=== PATIENT | female | born 1975 | race Caucasian/White ===

== ENCOUNTER 2016-07-04 10:02 | Inpatient (IN) | payer MEDICAID ==
[~2016-07-04] VITALS: Ht 157.5 cm; Wt 63.5 kg
[2016-07-04] VITALS (13 sets, daily range): BP systolic 82–145; BP diastolic 41–87; PULSE 69–179; RESP 14–35; TEMP 97.8–98.2; O2SAT 97–100
[~2016-07-04 10:02] MED LIST: CEPH-568 PO
[2016-07-04] MEDS ORDERED: ADENOSINE 6MG/2ML VIAL ONE ×2 (10:20→10:25)
[2016-07-04] MEDS ORDERED: MIDAZOLAM HCL 5 MG/5 ML VIAL ONE (10:29)
[2016-07-04] MEDS ORDERED: fentaNYL CITRATE/PF 100 MCG/2 ML AMP ONE (10:30)
[2016-07-04] MEDS ORDERED: METOPROLOL TARTRATE 5 MG/5 ML VIAL ONE ×2 (10:42→10:47)
[2016-07-04 10:56] LABS: BASOPHILS % (AUTO) 0.4 % (0.0-2.0); EOSINOPHILS # (AUTO) 0.1 K/uL (0.0-0.4); EOSINOPHILS % (AUTO) 1.4 % (0.0-4.0); HEMATOCRIT 47.3 % (36-48); HEMOGLOBIN 15.5 g/dL (12.0-16.0); LYMPHOCYTES # (AUTO) 2.5 K/uL (1.0-5.5); LYMPHOCYTES % (AUTO) 25.8 % (20.5-51.5); MEAN CORPUSCULAR HEMOGLOBIN 29 pg (27-31); MEAN CORPUSCULAR HGB CONC 33 % (32-36); MEAN CORPUSCULAR VOLUME 88 fL (79.0-98.0); MONOCYTES # (AUTO) 0.9 K/uL (0.0-1.0); NEUTROPHILS # (AUTO) 6.4 K/uL (1.8-7.7); NEUTROPHILS % (AUTO) 63.4 % (40.0-70.0); PLATELET COUNT (AUTO) 285 K/uL (130-430); RED CELL DISTRIBUTION WIDTH 12.3 % (9.0-15.0); WHITE BLOOD COUNT (AUTO) 9.9 K/uL (4.8-10.8)
[2016-07-04] MEDS ORDERED: MIDAZOLAM HCL 5 MG/5 ML VIAL IVP ONE (11:00)
[2016-07-04] MEDS ORDERED: ADENOSINE 6MG/2ML VIAL IVP ONE ×3 (11:00)
[2016-07-04] MEDS ORDERED: METOPROLOL TARTRATE 5 MG/5 ML VIAL IVP ONE ×3 (11:00)
[2016-07-04] MEDS ORDERED: fentaNYL CITRATE/PF 100 MCG/2 ML AMP IVP ONE (11:00)
[2016-07-04] MEDS ORDERED: NACL 0.9% 1,000 ML IV ONE ×4 (11:00→13:00)
[2016-07-04] MEDS ORDERED: METOPROLOL TARTRATE 25 MG TABLET PO ONE (11:00)
[2016-07-04 11:07] LABS: INR 1.1 (0.8-1.2); PROTHROMBIN TIME 11.8 SECS (9.5-12.5)
[2016-07-04 11:32] LABS: CREATININE 0.61 mg/dL (0.55-1.30); POTASSIUM 4.1 mmol/L (3.5-5.1)
[2016-07-04 11:46] LABS: ALBUMIN 3.8 g/dL (3.4-4.8); TOTAL BILIRUBIN 0.5 mg/dL (0.0-1.0); TOTAL PROTEIN, SERUM 7.4 g/dL (6.4-8.3)
[2016-07-04 11:47] LABS: THYROID STIMULATING HORMONE 5.32 uIu/mL (0.34-4.82)
[2016-07-04] MEDS ORDERED: COMMUNICATION ORDER XX ONE (13:00)
[2016-07-04] MEDS ORDERED: DILTIAZEM HCL 25 MG/5 ML VIAL IVP ONE (13:00)
[2016-07-04] MEDS ORDERED: ONDANSETRON HCL 4 MG/2 ML VIAL IVP ONE (13:00)
[2016-07-04] MEDS ORDERED: ONDANSETRON HCL 4 MG/2 ML VIAL ONE (13:08)
[2016-07-04] MEDS ORDERED: PHENYLEPHRINE HCL 10 MG/ML VIAL (NEOSYNEPHRINE) IV ONE (13:15)
[2016-07-04] MEDS ORDERED: METOPROLOL SUCCINATE 25 MG TAB.SR.24H (TOPROL XL) PO ONE (16:00)
[2016-07-04] MEDS ORDERED: FLECAINIDE ACETATE 50 MG TABLET (TAMBOCOR) ONE (17:48)
[2016-07-04] MEDS ORDERED: FLECAINIDE ACETATE 50 MG TABLET (TAMBOCOR) PO ONE (18:00)
[2016-07-04 19:45] LABS: BILIRUBIN,URINE NEGATIVE (NEGATIVE); BLOOD, URINE NEGATIVE (NEGATIVE); CLARITY/URINE CLEAR (CLEAR); COLOR,URINE YELLOW (YELLOW); GLUCOSE,URINE NEGATIVE (NEGATIVE); KETONES,URINE 1+ (NEGATIVE); NITRITE, URINE NEGATIVE (NEGATIVE); PH,URINE 7.5 (5.0-8.0); PROTEIN URINE NEGATIVE (NEGATIVE); UROBILINOGEN,URINE 0.2 (0.2-1.0)
[2016-07-04 19:53] LABS: LEUKOCYTE ESTERASE ,URINE TRACE (NEGATIVE)
[2016-07-04 19:54] LABS: BACTERIA,URINE FEW /HPF (None Seen); MUCUS,URINE None Seen /LPF (None Seen); RBC,URINE NONE SEEN /HPF (0-3)
[2016-07-04] MEDS: FLECAINIDE ACETATE 50 MG TABLET (TAMBOCOR) PO SCH (20:46)
[2016-07-05] VITALS (20 sets, daily range): BP systolic 73–121; BP diastolic 37–71; PULSE 57–102; RESP 14–28; TEMP 97.2–98.8; O2SAT 97–100
[2016-07-05] MEDS ORDERED: LEVOTHYROXINE SODIUM 0.05 MG TABLET PO SCH (07:00)
[2016-07-05] MEDS: FLECAINIDE ACETATE 50 MG TABLET (TAMBOCOR) PO SCH (08:28)
[2016-07-05] MEDS ORDERED: METOPROLOL SUCCINATE 25 MG TAB.SR.24H (TOPROL XL) PO SCH (09:00)
[2016-07-05] MEDS ORDERED: ACETAMINOPHEN 500 MG TABLET PO PRN (12:30)
[2016-07-05] MEDS ORDERED: KETOROLAC TROMETHAMINE 15 MG VIAL IVP ONE (14:30)
[2016-07-05] MEDS ORDERED: FLEC50TA2 PO (17:06)
[2016-07-05] MEDS ORDERED: METO25TA6 PO (17:07)
[2016-07-05] MEDS ORDERED: LEVO50TA77 PO (17:08)
== END 2016-07-05 18:10 | disposition home or self-care (01) | DRG 201 ==
LOC: SED 10:02 → SIC 12:48
PROVIDERS: ADMIT Family Medicine; ATTEND Family Medicine
DX: I47.1 Supraventricular tachycardia (principal); R55 Syncope and collapse; E03.9 Hypothyroidism, unspecified; E78.5 Hyperlipidemia, unspecified; Z79.899 Other long term (current) drug therapy
CPT/HCPCS: 36415; 71010; 80053; 80061; 81000-TC; 82550-TC; 84443-TC; 84484; 84703; 85025; 85610-TC; 85730-TC; 87081; 93005; 93306; 96374; 96375; 99291; J0153; J1885; J2250; J2370; J2405; J3010; J3490; J7030

== ENCOUNTER 2019-01-12 11:36 | Emergency (ER) | payer MEDICAID, OTHER ==
[~2019-01-12] VITALS: Ht 160 cm; Wt 70.3 kg
[2019-01-12 11:36] VITALS: BP_SYST 113
[~2019-01-12 11:36] MED LIST changes: -CEPH-568 PO; +FLEC50TA2 PO; +METO25TA6 PO; +SYN50 PO
[2019-01-12] MEDS ORDERED: NACL 0.9% 1,000 ML IV SCH (11:57)
[2019-01-12] MEDS ORDERED: MORPHINE 2 MG/ML INJ. SYRINGE IVP ONE (12:00)
[2019-01-12] MEDS ORDERED: METOCLOPRAMIDE HCL 10 MG/2 ML VIAL IVP ONE (12:00)
[2019-01-12 12:27] LABS: BASOPHILS % (AUTO) 0.5 % (0.0-2.0); EOSINOPHILS # (AUTO) 0.1 K/uL (0.0-0.4); EOSINOPHILS % (AUTO) 1.4 % (0.0-4.0); HEMOGLOBIN 13.2 g/dL (12.0-16.0); LYMPHOCYTES # (AUTO) 1.8 K/uL (1.0-5.5); LYMPHOCYTES % (AUTO) 29.9 % (20.5-51.5); MEAN CORPUSCULAR HEMOGLOBIN 31 pg (27-31); MEAN CORPUSCULAR HGB CONC 35 % (32-36); MEAN CORPUSCULAR VOLUME 89 fL (79.0-98.0); MONOCYTES # (AUTO) 0.6 K/uL (0.0-1.0); MONOCYTES % (AUTO) 9.1 % (1.7-9.3); NEUTROPHILS # (AUTO) 3.6 K/uL (1.8-7.7); NEUTROPHILS % (AUTO) 59.1 % (40.0-70.0); PLATELET COUNT (AUTO) 235 K/uL (130-430); RED BLOOD CELL COUNT(AUTO) 4.28 MIL/uL (4.2-6.2); RED CELL DISTRIBUTION WIDTH 13.1 % (9.0-15.0); WHITE BLOOD COUNT (AUTO) 6.1 K/uL (4.8-10.8)
[2019-01-12 12:40] LABS: CALCIUM 8.4 mg/dL (8.4-11.0); CREATININE 0.57 mg/dL (0.55-1.30); POTASSIUM 3.6 mmol/L (3.5-5.1)
[2019-01-12 12:46] LABS: ALBUMIN 3.2 g/dL (3.4-4.8); TOTAL BILIRUBIN 0.2 mg/dL (0.0-1.0)
[2019-01-12 14:29] VITALS: BP_SYST 117
== END 2019-01-12 14:28 | disposition home or self-care (01) ==
LOC: SED 11:36
DX: M54.31 Sciatica, right side (principal); E07.9 Disorder of thyroid, unspecified; K59.00 Constipation, unspecified; N83.291 Other ovarian cyst, right side; Z79.899 Other long term (current) drug therapy
CPT/HCPCS: 36415; 74176; 80053; 81002; 81025; 85025; 96374; 96375; 99284; J2270; J2765; J7030